=== PATIENT | female | born 1960 | race Hispanic/Latino ===

== ENCOUNTER 2023-05-11 16:28 | Inpatient (IN) | payer OTHER ==
[~2023-05-11] VITALS: Ht 162.6 cm; Wt 57.6 kg
[2023-05-11 18:00] VITALS: BP 142/79; PULSE 98; RESP 18
[2023-05-11] MEDS ORDERED: METOPROLOL TARTRATE 1 MG/ML 5ML VIAL IV ONE (18:30)
[2023-05-11] MEDS ORDERED: CLON0.5T PO (19:32)
[2023-05-11] MEDS ORDERED: ATOR40TA69 PO (19:32)
[2023-05-11] MEDS ORDERED: EMPA1TAB9 PO (19:32)
[2023-05-11] MEDS ORDERED: RANO500T2 PO (19:32)
[2023-05-11] MEDS ORDERED: DULA0.75 SQ (19:32)
[2023-05-11] MEDS ORDERED: ESCI20TA PO (19:32)
[2023-05-11] MEDS ORDERED: ASPI-1197 PO (19:32)
[2023-05-11] MEDS ORDERED: PANT40TA54 PO (19:32)
[2023-05-11] MEDS ORDERED: METO25TA6 PO (19:32)
[2023-05-11 19:35] VITALS: BP 138/82; PULSE 94; RESP 18
[2023-05-11 20:00] VITALS: O2SAT 98
[2023-05-11] MEDS ORDERED: MORPHINE 4 MG SYG IV PRN (21:00)
[2023-05-11] MEDS ORDERED: MORPHINE 2 MG SYG IV PRN (21:00)
[2023-05-11] MEDS ORDERED: ONDANSETRON 4MG INJ IV PRN (21:00)
[2023-05-11] MEDS ORDERED: ACETAMINOPHEN 325 MG TAB PO PRN ×2 (21:00)
[2023-05-11] MEDS: NITROGLYCERIN 1GM OINT 1 INCH/1GM TD SCH (21:05)
[2023-05-11] MEDS: FAMOTIDINE 20MG VIAL IV SCH (21:05)
[2023-05-11] MEDS: LACTATED RINGERS 1000ML 1,000 ML IV SCH (21:05)
[2023-05-11 21:28] LABS: BASOPHILS # (AUTO) 0.06 K/uL (0.00-0.20); BASOPHILS % (AUTO) 0.7 % (0.0-5.0); EOSINOPHILS # (AUTO) 0.04 K/uL (0.00-0.70); EOSINOPHILS % (AUTO) 0.5 % (0.0-8.0); IMMATURE GRANULOCYTE ABSOLUTE 0.05 K/uL (0-1); LYMPHOCYTES # (AUTO) 3.7 K/uL (1.0-4.8); LYMPHOCYTES % (AUTO) 44.4 % (21.0-51.0); MEAN CORPUSCULAR HEMOGLOBIN 29.5 pg (27.0-33.0); MEAN CORPUSCULAR HGB CONC 32.4 g/dL (32.0-36.0); MEAN CORPUSCULAR VOLUME 91.1 fL (79-99); MONOCYTES # (AUTO) 0.6 K/uL (0.1-1.0); MONOCYTES % (AUTO) 7.2 % (3.0-13.0); NEUTROPHILS # (AUTO) 3.9 K/uL (1.8-7.7); NEUTROPHILS % (AUTO) 46.6 % (40.0-77.0); PLATELET COUNT (AUTO) 365 K/uL (130-400); RED BLOOD CELL COUNT(AUTO) 4.17 MIL/uL (4.00-5.50); RED CELL DISTRIBUTION WIDTH 13.7 % (11.0-15.5); WHITE BLOOD COUNT (AUTO) 8.3 K/uL (4.8-10.8)
[2023-05-11 21:44] LABS: ALBUMIN 4.3 g/dL (3.5-5.0); BILIRUBIN,TOTAL 0.5 mg/dL (0.2-1.0); INR 0.98 (0.85-1.15); MAGNESIUM 1.2 mg/dL (1.80-2.40); PHOSPHORUS 4.2 mg/dL (2.5-4.9); POTASSIUM 4.4 mmol/L (3.5-5.1); PROTHROMBIN TIME 11.4 SEC (9.6-11.6); TOTAL PROTEIN, SERUM 7.4 g/dL (6.0-8.3)
[2023-05-11 21:45] LABS: PARTIAL THROMBOPLASTIN TIME 26.5 SEC (26.3-35.5)
[2023-05-11 21:55] LABS: B-TYPE NATRIURETIC PEPTIDE < 5 pg/mL (0-100)
[2023-05-11] MEDS: ZOLPIDEM TARTRATE 5 MG TAB PO PRN (22:09)
[2023-05-12] VITALS (17 sets, daily range): BP systolic 73–132; BP diastolic 39–79; PULSE 75–99; RESP 16–18; O2SAT 97–99
[2023-05-12 03:48] LABS: BASOPHILS # (AUTO) 0.05 K/uL (0.00-0.20); BASOPHILS % (AUTO) 0.7 % (0.0-5.0); EOSINOPHILS # (AUTO) 0.05 K/uL (0.00-0.70); EOSINOPHILS % (AUTO) 0.7 % (0.0-8.0); HEMATOCRIT 34.2 % (36-48); IMMATURE GRANULOCYTE ABSOLUTE 0.04 K/uL (0-1); LYMPHOCYTES # (AUTO) 3.2 K/uL (1.0-4.8); LYMPHOCYTES % (AUTO) 48.2 % (21.0-51.0); MEAN CORPUSCULAR HEMOGLOBIN 28.9 pg (27.0-33.0); MEAN CORPUSCULAR HGB CONC 31.9 g/dL (32.0-36.0); MEAN CORPUSCULAR VOLUME 90.7 fL (79-99); MONOCYTES # (AUTO) 0.5 K/uL (0.1-1.0); NEUTROPHILS # (AUTO) 2.9 K/uL (1.8-7.7); NEUTROPHILS % (AUTO) 42.8 % (40.0-77.0); PLATELET COUNT (AUTO) 301 K/uL (130-400); RED BLOOD CELL COUNT(AUTO) 3.77 MIL/uL (4.00-5.50); RED CELL DISTRIBUTION WIDTH 13.5 % (11.0-15.5); WHITE BLOOD COUNT (AUTO) 6.7 K/uL (4.8-10.8)
[2023-05-12 03:53] LABS: HEMOGLOBIN A1C 6.9 % (4.0-6.0)
[2023-05-12 03:57] LABS: INR 0.98 (0.85-1.15); PROTHROMBIN TIME 11.4 SEC (9.6-11.6)
[2023-05-12 03:58] LABS: PARTIAL THROMBOPLASTIN TIME 25.3 SEC (26.3-35.5)
[2023-05-12 04:06] LABS: CREATININE 1.4 mg/dL (0.5-1.5); POTASSIUM 4.5 mmol/L (3.5-5.1)
[2023-05-12] MEDS: INSULIN HUMULIN R 100 UNIT/ML 3ML SQ SCH ×4 (06:35→21:00)
[2023-05-12] MEDS: NITROGLYCERIN 1GM OINT 1 INCH/1GM TD SCH ×2 (06:35→12:48)
[2023-05-12] MEDS ORDERED: DIAZEPAM 5 MG TABLET PO ONE (09:00)
[2023-05-12] MEDS ORDERED: ENOXAPARIN SODIUM 40 MG/0.4 ML SYRINGE SQ SCH (09:00)
[2023-05-12] MEDS: ASPIRIN 81MG CHEW TAB PO SCH (09:00)
[2023-05-12] MEDS: CLONAZEPAM 0.5 MG TABLET PO SCH (09:00)
[2023-05-12] MEDS ORDERED: Dulaglutide (Trulicity) 0.75 MG SQ SCH (09:00)
[2023-05-12] MEDS ORDERED: ESCITALOPRAM OXALATE 40 MG PO SCH (09:00)
[2023-05-12] MEDS ORDERED: ASPIRIN 81MG CHEW TAB PO SCH (09:00)
[2023-05-12] MEDS: SYNJARDY PO SCH ×2 (09:00→20:06)
[2023-05-12] MEDS: CITALOPRAM 20 MG TABLET PO SCH (10:32)
[2023-05-12] MEDS: ATORVASTATIN 40 MG TABLET PO SCH (10:32)
[2023-05-12] MEDS: FAMOTIDINE 20MG VIAL IV SCH ×2 (10:32→20:11)
[2023-05-12] MEDS: PANTOPRAZOLE 40 MG TAB DR PO SCH (10:33)
[2023-05-12] MEDS: METOPROLOL TARTRATE 25 MG TAB PO SCH ×2 (10:33→20:06)
[2023-05-12] MEDS: RANOLAZINE 500 MG TAB.SR.12H PO SCH ×2 (10:33→21:00)
[2023-05-12] MEDS: LACTATED RINGERS 1000ML 1,000 ML IV SCH ×2 (10:34→22:40)
[2023-05-12] MEDS ORDERED: LIDOCAINE HCL 400MG/20ML VIAL ONE (12:46)
[2023-05-12] MEDS ORDERED: SODIUM BICARB 50MEQ 50ML VIAL 50 ML ONE (12:46)
[2023-05-12] MEDS ORDERED: MIDAZOLAM HCL 1 MG/ML 2ML VIAL ONE ×2 (12:47→13:36)
[2023-05-12] MEDS ORDERED: HEPARIN 10,000 UNIT/10ML (1,000 UNIT/ML) VIAL ONE (12:47)
[2023-05-12] MEDS ORDERED: MEPERIDINE-PF 50 MG/ML SYG ONE (12:47)
[2023-05-12] MEDS ORDERED: NICARDIPINE 25MG INJ IV ONE (13:10)
[2023-05-12] MEDS ORDERED: IOHEXOL 350 MG/ML 100ML INFUS..BTL IV ONE (13:33)
[2023-05-12] MEDS ORDERED: 0.9%NACL 1000ML 1,000 ML IV SCH (14:00)
[2023-05-12] MEDS ORDERED: 0.9% NACL 500ML IV.SOLN 500 ML IV SCH (20:00)
[2023-05-12] MEDS: ZOLPIDEM TARTRATE 5 MG TAB PO PRN (22:00)
[2023-05-13] VITALS (9 sets, daily range): BP systolic 80–136; BP diastolic 50–87; PULSE 81–99; RESP 16–18; O2SAT 95–100
[2023-05-13 04:11] LABS: BASOPHILS # (AUTO) 0.05 K/uL (0.00-0.20); BASOPHILS % (AUTO) 0.8 % (0.0-5.0); EOSINOPHILS # (AUTO) 0.09 K/uL (0.00-0.70); EOSINOPHILS % (AUTO) 1.4 % (0.0-8.0); HEMATOCRIT 33.8 % (36-48); IMMATURE GRANULOCYTE ABSOLUTE 0.03 K/uL (0-1); LYMPHOCYTES # (AUTO) 2.7 K/uL (1.0-4.8); LYMPHOCYTES % (AUTO) 41.2 % (21.0-51.0); MEAN CORPUSCULAR HEMOGLOBIN 29.8 pg (27.0-33.0); MEAN CORPUSCULAR HGB CONC 33.1 g/dL (32.0-36.0); MEAN CORPUSCULAR VOLUME 89.9 fL (79-99); MONOCYTES # (AUTO) 0.5 K/uL (0.1-1.0); MONOCYTES % (AUTO) 8.2 % (3.0-13.0); NEUTROPHILS # (AUTO) 3.1 K/uL (1.8-7.7); NEUTROPHILS % (AUTO) 47.9 % (40.0-77.0); PLATELET COUNT (AUTO) 307 K/uL (130-400); RED BLOOD CELL COUNT(AUTO) 3.76 MIL/uL (4.00-5.50); RED CELL DISTRIBUTION WIDTH 13.4 % (11.0-15.5); WHITE BLOOD COUNT (AUTO) 6.5 K/uL (4.8-10.8)
[2023-05-13 04:31] LABS: ALBUMIN 3.2 g/dL (3.5-5.0); BILIRUBIN,TOTAL 0.3 mg/dL (0.2-1.0); CREATININE 1.2 mg/dL (0.5-1.5); MAGNESIUM 1.3 mg/dL (1.80-2.40); POTASSIUM 4.8 mmol/L (3.5-5.1)
[2023-05-13] MEDS: INSULIN HUMULIN R 100 UNIT/ML 3ML SQ SCH ×4 (07:30→20:51)
[2023-05-13] MEDS: PANTOPRAZOLE 40 MG TAB DR PO SCH (08:52)
[2023-05-13] MEDS: CITALOPRAM 20 MG TABLET PO SCH (08:52)
[2023-05-13] MEDS: ATORVASTATIN 40 MG TABLET PO SCH (08:53)
[2023-05-13] MEDS: CLONAZEPAM 0.5 MG TABLET PO SCH (08:53)
[2023-05-13] MEDS: METOPROLOL TARTRATE 25 MG TAB PO SCH ×2 (08:53→20:44)
[2023-05-13] MEDS: RANOLAZINE 500 MG TAB.SR.12H PO SCH ×2 (08:53→20:42)
[2023-05-13] MEDS: ASPIRIN 81MG CHEW TAB PO SCH (08:53)
[2023-05-13] MEDS: SYNJARDY PO SCH ×2 (08:54→20:42)
[2023-05-13] MEDS: FAMOTIDINE 20MG VIAL IV SCH ×2 (08:54→20:42)
[2023-05-13] MEDS ORDERED: DILTIAZEM 180MG SR CAP PO SCH (09:00)
[2023-05-13] MEDS ORDERED: ISOSORBIDE MONO 30MG SR TAB PO SCH (09:00)
[2023-05-13] MEDS: LACTATED RINGERS 1000ML 1,000 ML IV SCH (12:31)
[2023-05-13] MEDS: MAGNESIUM 2GM PREMIX 50ML 50 ML IV PRN (12:31)
[2023-05-13] MEDS: FLUDROCORTISONE ACETATE 0.1 MG TABLET PO SCH (15:52)
[2023-05-13] MEDS ORDERED: ISOSORBIDE MONO 30MG SR TAB PO PRN (16:30)
[2023-05-13] MEDS: ZOLPIDEM TARTRATE 5 MG TAB PO PRN (20:42)
[2023-05-14] MEDS: LACTATED RINGERS 1000ML 1,000 ML IV SCH ×2 (01:44→15:17)
[2023-05-14 06:11] VITALS: BP 102/62; PULSE 85; RESP 18
[2023-05-14 06:28] LABS: HEMATOCRIT 34.7 % (36-48); MEAN CORPUSCULAR HEMOGLOBIN 29.4 pg (27.0-33.0); MEAN CORPUSCULAR VOLUME 91.8 fL (79-99); RED BLOOD CELL COUNT(AUTO) 3.78 MIL/uL (4.00-5.50); RED CELL DISTRIBUTION WIDTH 13.4 % (11.0-15.5); WHITE BLOOD COUNT (AUTO) 6.1 K/uL (4.8-10.8)
[2023-05-14] MEDS: INSULIN HUMULIN R 100 UNIT/ML 3ML SQ SCH ×3 (06:31→16:30)
[2023-05-14 06:46] LABS: ALBUMIN 3.2 g/dL (3.5-5.0); BILIRUBIN,TOTAL 0.3 mg/dL (0.2-1.0); POTASSIUM 4.2 mmol/L (3.5-5.1); TOTAL PROTEIN, SERUM 6.2 g/dL (6.0-8.3)
[2023-05-14 07:12] VITALS: BP 117/67; PULSE 78; RESP 16
[2023-05-14] MEDS: METOPROLOL TARTRATE 25 MG TAB PO SCH (08:37)
[2023-05-14] MEDS: ASPIRIN 81MG CHEW TAB PO SCH (08:38)
[2023-05-14] MEDS: CITALOPRAM 20 MG TABLET PO SCH (08:38)
[2023-05-14] MEDS: FLUDROCORTISONE ACETATE 0.1 MG TABLET PO SCH (08:38)
[2023-05-14] MEDS: ATORVASTATIN 40 MG TABLET PO SCH (08:38)
[2023-05-14] MEDS: FAMOTIDINE 20MG VIAL IV SCH (08:38)
[2023-05-14] MEDS: PANTOPRAZOLE 40 MG TAB DR PO SCH (08:38)
[2023-05-14] MEDS: RANOLAZINE 500 MG TAB.SR.12H PO SCH (08:38)
[2023-05-14] MEDS: SYNJARDY PO SCH (08:39)
[2023-05-14] MEDS: CLONAZEPAM 0.5 MG TABLET PO SCH (08:49)
[2023-05-14 11:27] VITALS: BP 104/63; PULSE 83; RESP 16
[2023-05-14] MEDS: MAGNESIUM 2GM PREMIX 50ML 50 ML IV PRN (12:13)
[2023-05-14 16:24] VITALS: BP 112/61; PULSE 83; RESP 16
[2023-05-14 16:27] VITALS: BP 113/67; PULSE 80; RESP 16
[2023-05-14 16:30] VITALS: BP 98/57; PULSE 86; RESP 16
[2023-05-14] MEDS ORDERED: RANO500T2 PO (17:30)
[2023-05-14] MEDS ORDERED: FLUD.1 PO (17:31)
[2023-05-14] MEDS ORDERED: RANOLAZINE 500 MG TAB.SR.12H PO SCH (21:00)
== END 2023-05-14 18:29 | disposition home or self-care (01) | DRG 287 ==
LOC: 2AH 17:50
PROVIDERS: ADMIT Internal Medicine; ATTEND Internal Medicine
PROC: 4A023N7 Measurement of Cardiac Sampling and Pressure, Left Heart, Percutaneous Approach (ICD-10-PCS; principal; 2023-05-12)
PROC: B2111ZZ Fluoroscopy of Multiple Coronary Arteries using Low Osmolar Contrast (ICD-10-PCS; 2023-05-12)
DX: I25.10 Atherosclerotic heart disease of native coronary artery without angina pectoris (principal); I12.9 Hypertensive chronic kidney disease with stage 1 through stage 4 chronic kidney disease, or unspecified chronic kidney disease; N18.30 Chronic kidney disease, stage 3 unspecified; E11.43 Type 2 diabetes mellitus with diabetic autonomic (poly)neuropathy; E11.22 Type 2 diabetes mellitus with diabetic chronic kidney disease; E78.5 Hyperlipidemia, unspecified; Z79.82 Long term (current) use of aspirin; Z79.899 Other long term (current) drug therapy; Z80.3 Family history of malignant neoplasm of breast; Z82.49 Family history of ischemic heart disease and other diseases of the circulatory system; Z87.891 Personal history of nicotine dependence; Z90.710 Acquired absence of both cervix and uterus; Z95.5 Presence of coronary angioplasty implant and graft; Z98.1 Arthrodesis status
CPT/HCPCS: 36415; 71045; 80048; 80053; 82948; 83036; 83735; 83880; 84100; 84484; 85025; 85027; 85610; 85730; 86850; 86900; 86901; 93306; 93356; 93458; 99156; 99157; C1769; G0378; J1644; J1815; J2175; J2250; J3475; J3490; Q9967; A4649; C1894; Q9965

== ENCOUNTER 2023-07-19 09:21 | Day surgery (SDC) | payer OTHER ==
[2023-07-13 11:31] LABS: ADD UA MICROSCOPIC YES; APPEARANCE,URINE CLEAR (CLEAR); BILIRUBIN,URINE NEGATIVE (NEGATIVE); COLOR,URINE LIGHT-YELLOW (YELLOW); GLUCOSE, URINE (UA) >=1000 mg/dL (NEGATIVE); KETONES,URINE NEGATIVE (NEGATIVE); LEUKOCYTE ESTERASE ,URINE NEGATIVE Leu/uL (NEGATIVE); NITRATE,URINE NEGATIVE (NEGATIVE); OCCULT BLOOD,URINE NEGATIVE (NEGATIVE); PROTEIN,URINE NEGATIVE (NEGATIVE); RBC,URINE 0-1 /HPF (0-1); SQUAMOUS EPITHELIAL CELL,UR RARE /HPF (0-2); UROBILINOGEN,URINE 0.2 mg/dL (0.2-1.0); WBC,URINE 0-1 /HPF (0-1)
[2023-07-13 11:32] LABS: BASOPHILS # (AUTO) 0.07 K/uL (0.00-0.20); EOSINOPHILS # (AUTO) 0.14 K/uL (0.00-0.70); EOSINOPHILS % (AUTO) 1.9 % (0.0-8.0); HEMATOCRIT 40.7 % (36-48); IMMATURE GRANULOCYTE ABSOLUTE 0.04 K/uL (0-1); LYMPHOCYTES # (AUTO) 2.4 K/uL (1.0-4.8); LYMPHOCYTES % (AUTO) 33.6 % (21.0-51.0); MEAN CORPUSCULAR HEMOGLOBIN 28.1 pg (27.0-33.0); MEAN CORPUSCULAR HGB CONC 31.2 g/dL (32.0-36.0); MONOCYTES # (AUTO) 0.5 K/uL (0.1-1.0); MONOCYTES % (AUTO) 6.3 % (3.0-13.0); NEUTROPHILS # (AUTO) 4.1 K/uL (1.8-7.7); NEUTROPHILS % (AUTO) 56.6 % (40.0-77.0); PLATELET COUNT (AUTO) 338 K/uL (130-400); RED BLOOD CELL COUNT(AUTO) 4.52 MIL/uL (4.00-5.50); RED CELL DISTRIBUTION WIDTH 13.2 % (11.0-15.5); WHITE BLOOD COUNT (AUTO) 7.2 K/uL (4.8-10.8)
[2023-07-13 11:39] LABS: POTASSIUM 4.6 mmol/L (3.5-5.1)
[2023-07-13 11:42] LABS: INR 0.98 (0.85-1.15); PROTHROMBIN TIME 11.4 SEC (9.6-11.6)
[2023-07-13 11:44] LABS: PARTIAL THROMBOPLASTIN TIME 26.6 SEC (26.3-35.5)
[2023-07-13 11:53] LABS: B-TYPE NATRIURETIC PEPTIDE 12 pg/mL (0-100)
[2023-07-13 11:54] VITALS: BP 130/57; PULSE 90; RESP 18
[~2023-07-19] VITALS: Ht 160 cm; Wt 58.4 kg
[2023-07-19] VITALS (9 sets, daily range): BP systolic 94–131; BP diastolic 51–77; PULSE 78–95; RESP 12–18
[~2023-07-19 09:21] MED LIST: ASPI-1197 PO; ATOR40TA69 PO; CLON0.5T PO; DULA0.75 SQ; EMPA1TAB9 PO; ESCI20TA PO; FLUD.1 PO; METO25TA6 PO; MIDO5TAB4 PO; PANT40TA54 PO
[2023-07-19] MEDS ORDERED: SODIUM BICARB 50MEQ 50ML VIAL 50 ML ONE (15:00)
[2023-07-19] MEDS ORDERED: LIDOCAINE HCL 400MG/20ML VIAL ONE (15:00)
[2023-07-19] MEDS ORDERED: HEPARIN 10,000 UNIT/10ML (1,000 UNIT/ML) VIAL ONE (15:00)
[2023-07-19] MEDS ORDERED: IOHEXOL 350 MG/ML 100ML INFUS..BTL IV ONE (15:00)
[2023-07-19] MEDS ORDERED: NITROGLYCERIN 50MG/D5W 250ML 1 BOT ONE (15:01)
[2023-07-19] MEDS ORDERED: MIDAZOLAM HCL 1 MG/ML 2ML VIAL ONE ×4 (15:13→16:31)
[2023-07-19] MEDS ORDERED: MEPERIDINE-PF 25 MG/ML SYG ONE ×4 (15:13→16:31)
[2023-07-19] MEDS ORDERED: METOPROLOL TARTRATE 1 MG/ML 5ML VIAL IV ONE ×3 (15:48→16:32)
[2023-07-19] MEDS ORDERED: ADENOSINE 90MG VIAL IV ONE (16:09)
[2023-07-19] MEDS ORDERED: IOHEXOL-350 50ML VIAL IV ONE (16:20)
[2023-07-19] MEDS ORDERED: DEXTROSE 50%-WATER 50 ML DISP.SYRIN IV PRN (17:00)
[2023-07-19] MEDS ORDERED: 0.9%NACL 10ML VIAL IVP SCH (17:00)
[2023-07-19] MEDS ORDERED: ACETAMINOPHEN 500 MG TABLET ONE (20:26)
[2023-07-19] MEDS ORDERED: INSULIN HUMULIN R 100 UNIT/ML 3ML SQ SCH (21:00)
== END 2023-07-19 21:15 | disposition home or self-care (01) ==
LOC: DAH 09:21
PROVIDERS: ATTEND Internal Medicine Cardiovascular Disease
DX: I25.112 Atherosclerotic heart disease of native coronary artery with refractory angina pectoris (principal); I10 Essential (primary) hypertension; E78.5 Hyperlipidemia, unspecified; Z79.82 Long term (current) use of aspirin; Z79.01 Long term (current) use of anticoagulants; Z79.899 Other long term (current) drug therapy; Z95.5 Presence of coronary angioplasty implant and graft; Z90.89 Acquired absence of other organs; Z90.49 Acquired absence of other specified parts of digestive tract; Z90.710 Acquired absence of both cervix and uterus; Z98.890 Other specified postprocedural states; Z82.49 Family history of ischemic heart disease and other diseases of the circulatory system; Z83.3 Family history of diabetes mellitus
CPT/HCPCS: 80048; 83880; 85025; 85610; 85730; 81001; 36415; 93005; 93458; 93571; 93572; 85347; 82948 ×2; C1894; C1760; C1887; C1769 ×2; J3490 ×6; J1644 ×2; J2250 ×4; J2175 ×4; Q9967 ×2; J0153; A4215; A4222; A4221; A4663; A4216; A4606; Q9965; A4223 ×3; 99156; 99157